=== PATIENT | female | born 1940 | race Caucasian/White ===

== ENCOUNTER → 2023-12-21 | Outpatient (RCR) | payer MEDICARE ==
[~2023-12-21] MED LIST: BALSAM PERU/CASTOR OIL 60 GM OINT...G. TP ONE; LIDOCAINE VISC 2% SOLN 15 ML UDC ONE; LIDOCAINE/PRILOCAINE 2.5-2.5% KIT ONE; MINERAL OIL/PETROLAT/GLYCERI 6OZ BTL ONE
== END ==
LOC: WCC 11-23 10:59
PROVIDERS: ATTEND Nurse Practitioner Family
DX: L89.623 Pressure ulcer of left heel, stage 3 (principal)

== ENCOUNTER → 2024-02-20 | Outpatient (RCR) | payer MEDICARE ==
[~2024-02-20] MED LIST changes: -BALSAM PERU/CASTOR OIL 60 GM OINT...G. TP ONE
== END ==
LOC: WCC 02-01 11:56
PROVIDERS: ATTEND Nurse Practitioner Family
DX: L89.623 Pressure ulcer of left heel, stage 3 (principal); R60.0 Localized edema
CPT/HCPCS: 87071; 87075; 87186; 87205

== ENCOUNTER 2024-03-19 10:51 | Outpatient (RCR) | payer MEDICARE ==
[~2024-03-19 10:51] MED LIST changes: -LIDOCAINE/PRILOCAINE 2.5-2.5% KIT ONE
== END 2024-03-22 ==
LOC: WCC 10:51
PROVIDERS: ATTEND Nurse Practitioner Family
DX: L89.623 Pressure ulcer of left heel, stage 3 (principal); R60.0 Localized edema

== ENCOUNTER 2024-03-19 14:11 | Outpatient (RCR) | payer MEDICARE | END 2024-03-22 | LOC: WCC 14:11 | PROVIDERS: ATTEND Nurse Practitioner Family | DX: L89.623 Pressure ulcer of left heel, stage 3 (principal); R60.0 Localized edema ==

== ENCOUNTER 2024-04-16 11:12 | Outpatient (RCR) | payer MEDICARE ==
[~2024-04-16 11:12] MED LIST changes: +LIDOCAINE/PRILOCAINE 2.5-2.5% KIT ONE; -MINERAL OIL/PETROLAT/GLYCERI 6OZ BTL ONE
[2024-04-16] MEDS ORDERED: LIDOCAINE VISC 2% SOLN 15 ML UDC ONE (13:33)
[2024-04-16] MEDS ORDERED: LIDOCAINE/PRILOCAINE 2.5-2.5% KIT ONE (13:33)
== END 2024-04-19 ==
LOC: WCC 11:12
PROVIDERS: ATTEND Nurse Practitioner Family
DX: L89.623 Pressure ulcer of left heel, stage 3 (principal); R60.0 Localized edema

== ENCOUNTER 2024-05-16 08:47 | Outpatient (RCR) | payer MEDICARE ==
[~2024-05-16 08:47] MED LIST changes: +MINERAL OIL/PETROLAT/GLYCERI 6OZ BTL ONE
== END 2024-05-20 ==
LOC: WCC 08:47
PROVIDERS: ATTEND Nurse Practitioner Family
DX: L89.623 Pressure ulcer of left heel, stage 3 (principal); R60.0 Localized edema

== ENCOUNTER 2024-06-13 10:30 | Outpatient (RCR) | payer MEDICARE ==
[2024-06-13] MEDS ORDERED: LIDOCAINE/PRILOCAINE 2.5-2.5% KIT ONE (13:46)
[2024-06-13] MEDS ORDERED: LIDOCAINE VISC 2% SOLN 15 ML UDC ONE (13:46)
[2024-06-13] MEDS ORDERED: MINERAL OIL/PETROLAT/GLYCERI 6OZ BTL ONE (13:46)
== END 2024-06-19 ==
LOC: WCC 10:30
PROVIDERS: ATTEND Nurse Practitioner Family
DX: L89.623 Pressure ulcer of left heel, stage 3 (principal); R60.0 Localized edema

== ENCOUNTER 2024-09-18 12:30 | Outpatient (RCR) | payer MEDICARE | END 2024-09-19 | LOC: WCC 12:30 | PROVIDERS: ATTEND Nurse Practitioner Family | DX: L89.623 Pressure ulcer of left heel, stage 3 (principal); R60.0 Localized edema | CPT/HCPCS: 87071; 87075; 87186; 87205 ==

== ENCOUNTER 2024-10-16 13:12 | Outpatient (RCR) | payer MEDICARE ==
[~2024-10-16 13:12] MED LIST changes: +AMMONIUM LACTATE 12% LOTION 225GM BTL ONE
== END 2024-10-20 ==
LOC: WCC 13:12
PROVIDERS: ATTEND Nurse Practitioner Family
DX: L89.623 Pressure ulcer of left heel, stage 3 (principal); B96.29 Other Escherichia coli [E. coli] as the cause of diseases classified elsewhere

== ENCOUNTER 2024-11-13 14:00 | Outpatient (RCR) | payer MEDICARE | END 2024-11-19 | LOC: WCC 14:00 | PROVIDERS: ATTEND Internal Medicine Infectious Disease | DX: L89.623 Pressure ulcer of left heel, stage 3 (principal); R60.0 Localized edema ==